=== PATIENT | male | born 1945 | race Caucasian/White ===

== ENCOUNTER 2020-12-10 05:30 | Day surgery (SDC) | payer OTHER | END 2020-12-10 10:10 | disposition home or self-care (01) | LOC: AMB-ENDOS 05:30 | PROVIDERS: ATTEND Colon & Rectal Surgery | DX: D13.0 Benign neoplasm of esophagus (principal); D13.1 Benign neoplasm of stomach; Z20.822 Contact with and (suspected) exposure to COVID-19; K44.9 Diaphragmatic hernia without obstruction or gangrene; K64.0 First degree hemorrhoids ==